=== PATIENT | female | born 1970 | race Caucasian/White ===

== ENCOUNTER 2023-10-08 12:41 | Emergency (ER) | payer MEDICAID ==
[~2023-10-08] VITALS: Ht 172.7 cm; Wt 76.2 kg
[2023-10-08 12:52] VITALS: PULSE 98; TEMP 97.8; O2SAT 98
[2023-10-08] MEDS ORDERED: ketorolac trometh inj. 60 MG/2 ML VIAL IM ONE (14:40)
[2023-10-08] MEDS ORDERED: NAPR-56 PO (14:42)
[2023-10-08 14:50] VITALS: RESP 18
[2023-10-08] MEDS: ketorolac trometh. 30mg/ml inj. IM ONE (14:50)
[2023-10-08 15:00] VITALS: BP 120/86
== END 2023-10-08 15:08 | disposition home or self-care (01) ==
LOC: ER 12:42
DX: M79.641 Pain in right hand (principal); M79.642 Pain in left hand
CPT/HCPCS: 96372; 99283; J1885